=== PATIENT | male | born 1970 | race African-American/Black ===

== ENCOUNTER 2021-11-05 03:55 | Emergency (ER) | payer OTHER ==
[~2021-11-05] VITALS: Ht 182.9 cm; Wt 78.0 kg
[2021-11-05 07:36] VITALS: BP 158/89
== END 2021-11-05 07:38 | disposition home or self-care (01) ==
LOC: ER 03:55
DX: F10.129 Alcohol abuse with intoxication, unspecified (principal); Y90.9 Presence of alcohol in blood, level not specified